=== PATIENT | male | born 1980 | race Caucasian/White ===

== ENCOUNTER 2019-09-06 11:53 | Emergency (ER) | payer BC ==
[~2019-09-06] VITALS: Ht 177.8 cm; Wt 78.0 kg
[2019-09-06 11:58] VITALS: BP 170/74; Ht 177.8 cm; Wt 78.0 kg
== END 2019-09-06 14:58 | disposition home or self-care (01) ==
LOC: ED 11:53
DX: S37.33XA Laceration of urethra, initial encounter (principal); W22.8XXA Striking against or struck by other objects, initial encounter; Y93.89 Activity, other specified; Y92.89 Other specified places as the place of occurrence of the external cause; Y99.8 Other external cause status